=== PATIENT | female | born 1955 | race Caucasian/White ===

== ENCOUNTER 2017-03-22 02:02 | Emergency (ER) | payer BC ==
[~2017-03-22] VITALS: Ht 162.6 cm; Wt 92.0 kg
[~2017-03-22 02:02] MED LIST: ASPIR 8181 M1 PO; Altace PO; Aspirin Chewable PO; Aspirin E.C. PO; BACTRIM,SEPT1 TABLET PO; GLIPIZIDE10 MG PO; Glucophage PO; Glucotrol PO; LEVEMIR FL100 UNITS/ SC; LIPITOR20 MG PO; LOFIBRA,TRIGLI160 MG PO; Lipitor PO; Lovenox SC; MECLIZINE HCL25 M2 NG; METFORMIN HCL1000 MG PO; Motrin PO; NORCO 5/3251 TABLET PO; NORVASC5 MG PO; NOVOLOG PE100 UNITS/ SC; Norvasc PO; PAXIL20 MG PO; PROTONIX20 MG PO; Paxil PO; Percocet 5/325,Endoc PO; Proventil,Ventolin H IH; RAMIPRIL10 MG PO; TRICOR145 MG PO; TYLENOL REGULA325 MG PO; Tricor PO; VITAMIN B12
[2017-03-22 03:04] LABS: ADD MIUA? YES; BILIRUBIN NEGATIVE; BLOOD NEGATIVE; COLOR STRAW ((YELLOW)); GLUCOSE (STRIP) 50; KETONES NEGATIVE; LEUKOCYTES NEGATIVE; NITRITE NEGATIVE; PROTEIN (STRIP) 100; SPECIFIC GRAVITY 1.009 (1.000-1.030); UROBILINOGEN 0.2 MG/DL (0.2-1.0)
[2017-03-22 03:08] LABS: BACTERIA NONE SEEN /HPF; EPITHELIAL CELLS RARE /HPF; MUCUS TRACE /LPF; RED BLOOD CELLS 0-5 /HPF (0-5); UCUL ADDED? NO; WHITE BLOOD CELLS 0-5 /HPF (0-5)
[2017-03-22 04:31] LABS: HEMATOCRIT 43.3 % (36.0-46.0); MCHC 34.4 G/DL (30.0-36.0); MCV 84.2 FL (83-99); MEAN PLAT.VOLUME 9.8 uM^3 (9.5-12.4); PLATELET COUNT 214 K/uL (156-360); RBC DIS.WIDTH-CV 13.4 % (11.8-14.6); RBC DIS.WIDTH-SD 41.7 % (39-53); RED BLOOD COUNT 5.14 M/uL (3.80-5.20); WHITE BLOOD COUNT 9.7 K/uL (4.1-10.2)
[2017-03-22 04:45] VITALS: BP 150/67
[2017-03-22 04:45] LABS: CHLORIDE 106 mEq/L (99-109); POTASSIUM 4.5 mEq/L (3.7-5.4); SODIUM 138 mEq/L (136-147)
[2017-03-22 04:48] LABS: GLUCOSE 216 mg/dL (70-99)
[2017-03-22 04:49] LABS: ANION GAP 11 MEQ/L (2-14); TOTAL BILIRUBIN 0.2 mg/dL (0.0-1.0)
[2017-03-22 04:51] LABS: ALKALINE PHOSPHATASE 43 IU/L (3-129); GFR ESTIMATE (CALCULATED) > 59 mL/min/
[2017-03-22 04:52] LABS: TROP-I INTERPRETATION NEGATIVE; TROPONIN-I < 0.01 ng/mL (0.0-0.30); UREA NITROGEN (BUN) 22 mg/dL (9-23)
[2017-03-22 04:55] LABS: LIPASE 255 U/L (1.0-51.0)
[2017-03-22] MEDS ORDERED: VALIUM2 MG PO (05:11)
== END 2017-03-22 05:56 | disposition home or self-care (01) ==
LOC: EME 02:02
PROVIDERS: Emergency Medicine
DX: H81.399 Other peripheral vertigo, unspecified ear (principal); I10 Essential (primary) hypertension; R79.89 Other specified abnormal findings of blood chemistry; J44.9 Chronic obstructive pulmonary disease, unspecified; E11.9 Type 2 diabetes mellitus without complications; Z87.442 Personal history of urinary calculi; Z79.82 Long term (current) use of aspirin; Z79.4 Long term (current) use of insulin; Z79.84 Long term (current) use of oral hypoglycemic drugs; F17.200 Nicotine dependence, unspecified, uncomplicated
CPT/HCPCS: 70450; 80053; 81003; 83690; 84484; 85027; 93005; 99281; 99284; J3360; J7030

== ENCOUNTER 2017-07-25 12:10 | Emergency (ER) | payer BC ==
[~2017-07-25] VITALS: Ht 162.6 cm; Wt 90.6 kg
[~2017-07-25 12:10] MED LIST changes: +VALIUM2 MG PO
[2017-07-25 13:31] LABS: ADD MIUA? YES; BILIRUBIN NEGATIVE; BLOOD NEGATIVE; COLOR YELLOW ((YELLOW)); GLUCOSE (STRIP) 50; KETONES NEGATIVE; LEUKOCYTES NEGATIVE; NITRITE NEGATIVE; PROTEIN (STRIP) >=500; SPECIFIC GRAVITY 1.014 (1.000-1.030); UROBILINOGEN 0.2 MG/DL (0.2-1.0)
[2017-07-25 13:35] LABS: BACTERIA NONE SEEN /HPF; EPITHELIAL CELLS RARE /HPF; MUCUS TRACE /LPF; RED BLOOD CELLS 0-5 /HPF (0-5); WHITE BLOOD CELLS 0-5 /HPF (0-5)
[2017-07-25 14:21] LABS: HEMATOCRIT 40.4 % (36.0-46.0); MCH 28.4 PG (29.0-34.0); MCHC 32.9 G/DL (30.0-36.0); MCV 86.3 FL (83-99); MEAN PLAT.VOLUME 9.4 uM^3 (9.5-12.4); PLATELET COUNT 287 K/uL (156-360); RBC DIS.WIDTH-CV 13.6 % (11.8-14.6); RBC DIS.WIDTH-SD 42.7 % (39-53); RED BLOOD COUNT 4.68 M/uL (3.80-5.20); WHITE BLOOD COUNT 11.2 K/uL (4.1-10.2)
[2017-07-25 14:32] LABS: CHLORIDE 107 mEq/L (99-109); POTASSIUM 4.5 mEq/L (3.7-5.4); SODIUM 140 mEq/L (136-147)
[2017-07-25 14:34] LABS: GLUCOSE 265 mg/dL (70-99)
[2017-07-25 14:35] LABS: ANION GAP 9 MEQ/L (2-14)
[2017-07-25 14:38] LABS: GFR ESTIMATE (CALCULATED) 44 mL/min/; UREA NITROGEN (BUN) 25 mg/dL (9-23)
[2017-07-25 14:53] VITALS: BP 185/74
== END 2017-07-25 14:53 | disposition home or self-care (01) ==
LOC: EME 12:10
PROVIDERS: Physician Assistant
DX: R68.83 Chills (without fever) (principal); I10 Essential (primary) hypertension; E11.9 Type 2 diabetes mellitus without complications; F17.200 Nicotine dependence, unspecified, uncomplicated; Z79.4 Long term (current) use of insulin; Z87.440 Personal history of urinary (tract) infections
CPT/HCPCS: 80048; 81003; 85027; 99281; 99284

== ENCOUNTER 2017-12-06 04:46 | Emergency (ER) | payer BC, OTHER ==
[~2017-12-06] VITALS: Ht 162.6 cm; Wt 89.1 kg
[2017-12-06 05:39] LABS: APPEARANCE SL.HAZY ((CLEAR)); BILIRUBIN NEGATIVE; BLOOD NEGATIVE; COLOR YELLOW ((YELLOW)); GLUCOSE (STRIP) 50; KETONES 5; LEUKOCYTES NEGATIVE; NITRITE NEGATIVE; PROTEIN (STRIP) >=500; UROBILINOGEN 0.2 MG/DL (0.2-1.0)
[2017-12-06 05:44] LABS: BACTERIA NONE SEEN /HPF; EPITHELIAL CELLS RARE /HPF; MUCUS TRACE /LPF; RED BLOOD CELLS 0-5 /HPF (0-5); UCUL ADDED? NO; WHITE BLOOD CELLS 0-5 /HPF (0-5)
[2017-12-06 05:49] LABS: BASOPHIL (%) 1.2 % (0-1); BASOPHIL COUNT 0.1 K/uL (0-0.1); EOSINOPHIL (%) 2.1 % (0-5); EOSINOPHIL COUNT 0.3 K/uL (0-0.3); HEMATOCRIT 43.8 % (36.0-46.0); HEMOGLOBIN 14.8 G/DL (11.9-15.5); IMMATURE GRANULOCYTE (%) 0.4 % (0.0-0.7); LYMPHOCYTE (%) 30.1 % (15-42); LYMPHOCYTE COUNT 3.7 K/uL (1.0-2.8); MCH 29.1 PG (29.0-34.0); MCHC 33.8 G/DL (30.0-36.0); MCV 86.2 FL (83-99); MONOCYTE (%) 6.3 % (3-12); MONOCYTE COUNT 0.8 K/uL (0-0.8); NEUTROPHIL (%) 59.9 % (45-76); NEUTROPHIL COUNT 7.3 K/uL (1.8-6.4); PLATELET COUNT 313 K/uL (156-360); RBC DIS.WIDTH-CV 13.2 % (11.8-14.6); RBC DIS.WIDTH-SD 41.2 % (39-53); RED BLOOD COUNT 5.08 M/uL (3.80-5.20); WHITE BLOOD COUNT 12.1 K/uL (4.1-10.2)
[2017-12-06 05:58] LABS: ALBUMIN 3.9 g/dL (3.2-4.8)
[2017-12-06 05:59] LABS: CHLORIDE 104 mEq/L (99-109); POTASSIUM 4.1 mEq/L (3.7-5.4); SODIUM 139 mEq/L (136-147)
[2017-12-06 06:01] LABS: GLUCOSE 178 mg/dL (70-99); TOTAL PROTEIN 7.4 g/dL (6.4-8.3)
[2017-12-06 06:03] LABS: TOTAL BILIRUBIN 0.3 mg/dL (0.0-1.0)
[2017-12-06 06:04] LABS: ALKALINE PHOSPHATASE 43 IU/L (3-129)
[2017-12-06 06:05] LABS: CREATININE 1.4 mg/dL (0.6-1.3); GFR ESTIMATE (CALCULATED) 40 mL/min/
[2017-12-06 06:06] LABS: AST (GOT) 16 IU/L (2-34); UREA NITROGEN (BUN) 25 mg/dL (9-23)
[2017-12-06 06:07] LABS: ALT (GPT) 12 IU/L (3-49)
[2017-12-06 06:08] LABS: LIPASE 92 U/L (1.0-51.0)
[2017-12-06 08:07] VITALS: BP 176/80
== END 2017-12-06 08:13 | disposition home or self-care (01) ==
LOC: EME 04:46
PROVIDERS: Emergency Medicine
DX: R10.9 Unspecified abdominal pain (principal); I31.3 Pericardial effusion (noninflammatory); R35.0 Frequency of micturition; M54.9 Dorsalgia, unspecified; Z90.5 Acquired absence of kidney; Z90.710 Acquired absence of both cervix and uterus; Z87.442 Personal history of urinary calculi; I10 Essential (primary) hypertension; J44.9 Chronic obstructive pulmonary disease, unspecified; E11.9 Type 2 diabetes mellitus without complications; Z79.4 Long term (current) use of insulin; Z79.82 Long term (current) use of aspirin; F17.200 Nicotine dependence, unspecified, uncomplicated
CPT/HCPCS: 74176; 80053; 81003; 83605; 83690; 85025; 93005; 99281; 99285; J7030

== ENCOUNTER 2017-12-09 19:32 | Emergency (ER) | payer BC, OTHER ==
[~2017-12-09] VITALS: Ht 162.6 cm; Wt 91.2 kg
[2017-12-09 20:07] LABS: HEMATOCRIT 42.4 % (36.0-46.0); HEMOGLOBIN 14.6 G/DL (11.9-15.5); MCH 29.4 PG (29.0-34.0); MCHC 34.4 G/DL (30.0-36.0); MCV 85.3 FL (83-99); PLATELET COUNT 293 K/uL (156-360); RBC DIS.WIDTH-CV 13.2 % (11.8-14.6); RED BLOOD COUNT 4.97 M/uL (3.80-5.20); WHITE BLOOD COUNT 13.5 K/uL (4.1-10.2)
[2017-12-09 20:15] LABS: APPEARANCE SL.HAZY ((CLEAR)); BILIRUBIN NEGATIVE; BLOOD NEGATIVE; COLOR YELLOW ((YELLOW)); GLUCOSE (STRIP) 50; KETONES 5; LEUKOCYTES NEGATIVE; NITRITE NEGATIVE; PROTEIN (STRIP) >=500; UROBILINOGEN 0.2 MG/DL (0.2-1.0)
[2017-12-09 20:17] LABS: ALBUMIN 3.7 g/dL (3.2-4.8)
[2017-12-09 20:18] LABS: CHLORIDE 110 mEq/L (99-109); SODIUM 145 mEq/L (136-147)
[2017-12-09 20:20] LABS: GLUCOSE 190 mg/dL (70-99); TOTAL PROTEIN 6.8 g/dL (6.4-8.3)
[2017-12-09 20:22] LABS: BACTERIA NONE SEEN /HPF; EPITHELIAL CELLS 1+ /HPF; MUCUS TRACE /LPF; RED BLOOD CELLS 0-5 /HPF (0-5); UCUL ADDED? NO; WHITE BLOOD CELLS 0-5 /HPF (0-5)
[2017-12-09 20:22] LABS: TOTAL BILIRUBIN 0.3 mg/dL (0.0-1.0)
[2017-12-09 20:23] LABS: ALKALINE PHOSPHATASE 43 IU/L (3-129)
[2017-12-09 20:24] LABS: CREATININE 1.4 mg/dL (0.6-1.3); GFR ESTIMATE (CALCULATED) 40 mL/min/
[2017-12-09 20:25] LABS: AST (GOT) 12 IU/L (2-34); UREA NITROGEN (BUN) 24 mg/dL (9-23)
[2017-12-09 20:27] LABS: ALT (GPT) 11 IU/L (3-49)
[2017-12-09 20:45] LABS: LIPASE 61 U/L (1.0-51.0)
[2017-12-09] MEDS ORDERED: ULTRACET1 TABLET PO (23:06)
[2017-12-09] MEDS ORDERED: VALIUM2 MG PO (23:07)
[2017-12-09] MEDS ORDERED: LIDODERM 5% P1 PATCH TD (23:08)
[2017-12-09 23:19] VITALS: BP 169/81
== END 2017-12-09 23:29 | disposition home or self-care (01) ==
LOC: EME 19:32
DX: S29.012A Strain of muscle and tendon of back wall of thorax, initial encounter (principal); E86.0 Dehydration; E11.9 Type 2 diabetes mellitus without complications; J44.9 Chronic obstructive pulmonary disease, unspecified; I10 Essential (primary) hypertension; F32.9 Major depressive disorder, single episode, unspecified; F17.200 Nicotine dependence, unspecified, uncomplicated; Z79.4 Long term (current) use of insulin; Z79.82 Long term (current) use of aspirin; Z87.442 Personal history of urinary calculi; Z90.5 Acquired absence of kidney; Z90.49 Acquired absence of other specified parts of digestive tract; Z90.710 Acquired absence of both cervix and uterus
CPT/HCPCS: 80053; 81003; 83605; 83690; 85027; 99281; 99284; J2270